=== PATIENT | female | born 1980 | race Caucasian/White ===

== ENCOUNTER 2016-09-28 14:21 | Emergency (ER) | payer BC, OTHER ==
[~2016-09-28] VITALS: Ht 182.9 cm; Wt 149.7 kg
[2016-09-28 17:12] VITALS: BP 126/76
== END 2016-09-28 17:17 | disposition home or self-care (01) ==
LOC: ER 14:21
DX: O99.89 Other specified diseases and conditions complicating pregnancy, childbirth and the puerperium (principal); T78.49XA Other allergy, initial encounter; X58.XXXA Exposure to other specified factors, initial encounter